=== PATIENT | male | born 1965 | race Caucasian/White ===

== ENCOUNTER 2024-08-04 18:56 | Emergency (ER) | payer OTHER, SELFPAY ==
[2024-08-04 19:09] VITALS: BP 142/82; PULSE 90; RESP 16; TEMP 36.8; O2SAT 92
--- NOTE | 2024-08-04 19:10 | ED.GENADUL_ITS ---
Discharge Plan Disposition Patient Disposition: Home Condition: Good Discharge Details Clinical Impression: Epistaxis Primary Care Provider: Idania Tyler ED Provider: Jorgito Omer Meds and New Rx's Prescriptions: New cephalexin 500 mg capsule 500 mg PO TID Qty: 12 0RF Continued aspirin [Brian Low Dose Aspirin] 81 mg PO DAILY famotidine [Pepcid] 40 mg tablet 40 mg PO DAILY hydrochlorothiazide 25 mg tablet 25 mg PO DAILY tamsulosin 0.4 mg capsule 0.4 mg PO DAILY lovastatin 20 mg tablet 20 mg PO DAILY meloxicam 7.5 mg tablet 7.5 mg PO DAILY PRN Discharge Instructions Instructions: Nosebleeds ED Additional Instructions: You were seen for nosebleed which has been ongoing problem for the last few days. We have packed your right nostril which should prevent further bleeding. Please take antibiotic while packing is in place. Please call Dr. Gutierrez's office tomorrow morning for follow-up appointment. Return to ED for uncontrolled bleeding, worsening facial pain or swelling, fever, other concerns. Stand Alone Forms: Work Release Referrals: Joseph Gutierrez MD [ [facility] STAFF PHYSICIAN] - [facility] General Mode of arrival: ambulatory . Date/Time Provider Initiated Documentation: 08/04/24 19:10 . Limitations to Documentation: no limitations . Information obtained by: patient and RN notes reviewed . HPI Narrative: Patient presenting to ED with nosebleed. Patient has been having issues with intermittent nosebleeds over the last 5 days. He did present to [facility] earlier this week for nosebleed. He reports attempted packing with rapid Rhino with no success. He is not on anticoagulation. He denies prior problems with nosebleeds. Denies any recent trauma or injury. Recurrent nosebleed today and unable to control at home. Presents to ED for evaluation. Related Data Home Medications ?Medication ?Instructions ?Recorded ?Confirmed aspirin 81 mg PO DAILY 08/04/24 08/04/24 cephalexin 500 mg capsule 500 mg PO TID #12 caps 08/04/24 famotidine 40 mg tablet (Pepcid) 40 mg PO DAILY 08/04/24 08/04/24 hydrochlorothiazide 25 mg tablet 25 mg PO DAILY 08/04/24 08/04/24 lovastatin 20 mg tablet 20 mg PO DAILY 08/04/24 08/04/24 meloxicam 7.5 mg tablet 7.5 mg PO DAILY PRN 08/04/24 08/04/24 tamsulosin 0.4 mg capsule 0.4 mg PO DAILY 08/04/24 08/04/24 Previous Rx's ?Medication ?Instructions ?Recorded cephalexin 500 mg capsule 500 mg PO TID #12 caps 08/04/24 Allergies Allergy/AdvReac Type Severity Reaction Status Date / Time No Known Allergies Allergy Unverified 08/04/24 19:21 Review of Systems Narrative: Per HPI Exam Narrative Exam Narrative: Const: WDWN male in NAD. VS per triage. HEENT: NC/AT. Normal facial exam. Right nare with large clot present. No active bleeding. Neck: Supple. Trachea midline. Lungs: Normal respiratory effort. Neuro: A+O x 3. Normal speech, mentation, gait. Cranial nerves II - XII grossly intact. No gross motor or sensory deficit. Procedures Epistaxis Control Time Out Performed: No Nostril: right Nose Prepped With: cocaine Direct Inspection: unable to visualize Clots Removed by: blowing nose Cautery Used: none Device Inserted: nasal tampon (rhino rocket) Patient Tolerated Procedure: well and no complications Medical Decision Making Patient presenting to ED with recurrent nosebleed. No active bleeding currently, large clot in the right nostril. Patient able to blow clot free and right nostril packed with cotton ball soaked in 1 mL of topical cocaine. Patidionisio walker then began bleeding to the cottonball and down his throat. Cottonball removed and discussed placement of Rhino Rocket, not rapid Rhino which she did not tolerate previously. Patient did tolerate placement of Rhino Rocket. He was observed for another 15 minutes with no recurrent bleeding. He started on cephalexin while packing in place. He was referred to ENT for follow-up in the next 2 to 3 days. Return precautions provided. PFSH All Active Problems Epistaxis (Acute) Medical History BPH (benign prostatic hyperplasia) Hyperlipidemia HTN (hypertension) Social History Smoking risk assessment performed?: No
[2024-08-04] MEDS: Cocaine Nasal 4% 4 ML BTL TP (19:31)
[2024-08-04] MEDS: Acetaminophen 500 MG TAB 1000 MG PO (20:06)
[2024-08-04] MEDS: Cephalexin 500 MG CAP PO (20:52)
--- NOTE | 2024-08-04 21:04 | NUR.NOTE ---
Nursing Note: string secured to the pts face. dressing placed under nose. po abx given with discharge instructions
[2024-08-04 21:05] VITALS: BP 126/89; PULSE 80; RESP 16; TEMP 36.7; O2SAT 100
--- NOTE | 2024-08-06 13:13 | NUR.NOTE ---
Nursing Note: Received call from Rhonda in [place] that prescription was faxed without signature. Verbal order given to pharmacist.
== END 2024-08-04 21:14 | disposition home or self-care (01) ==
PROVIDERS: Emergency Provider Emergency Medicine; PCP Internal Medicine
DX: R04.0 Epistaxis (principal); I10 Essential (primary) hypertension
CPT/HCPCS: 30903